=== PATIENT | male | born 2000 | race Caucasian/White ===

== ENCOUNTER 2022-06-02 21:20 | Emergency (ER) | payer SELFPAY ==
[~2022-06-02] VITALS: Ht 167.6 cm; Wt 77.0 kg
[2022-06-03 00:01] VITALS: BP 145/78
[2022-06-03] MEDS ORDERED: KETOROLAC TROMETH 60MG/2ML VIAL IM ONE (00:15)
== END 2022-06-03 00:20 | disposition home or self-care (01) ==
LOC: ER 21:22
DX: M54.2 Cervicalgia (principal); M54.59 Other low back pain; V43.52XA Car driver injured in collision with other type car in traffic accident, initial encounter; Y93.89 Activity, other specified; Y92.410 Unspecified street and highway as the place of occurrence of the external cause; Y99.8 Other external cause status
CPT/HCPCS: 72040; 72100; 96372; 99284; J1885; L0120